=== PATIENT | male | born 1925 | race Caucasian/White ===

== ENCOUNTER 2016-11-07 23:07 | Inpatient (IN) | payer MEDICARE, OTHER ==
[2016-11-08 00:01] VITALS: BP 128/63
[2016-11-08 07:50] LABS: % BASOPHILS 0.2 % (0.0-2.0); % EOSINOPHILS 1.9 % (0.0-5.0); % MONOCYTES 8.5 % (2.0-10.0); % NEUTROPHILS 67.4 % (40.0-80.0); HEMATOCRIT 40.7 % (39.0-49.0); HEMOGLOBIN 13.8 gm/dL (12.6-17.4); MEAN CELL VOLUME 93.3 fl (80-99); MEAN CORPUSCULAR HEMOGLOBIN 31.7 pg (27.0-31.0); MEAN PLATELET VOLUME 8.7 fl; NEUTROPHILE ABSOLUTE 4.8 Th/cmm (1.8-8.0); PLATELET COUNT 140 Th/cmm (150-400); RED BLOOD COUNT 4.36 Mil/cmm (3.80-5.80); RED CELL DISTRIBUTION WIDTH 18.7 % (11.5-20.0); WHITE BLOOD COUNT 7.1 Th/cmm (4.8-10.8)
[2016-11-08 08:03] LABS: ALB/GLOB RATIO 1.5 (1.0-1.8); ALKALINE PHOSPHATASE 65 U/L (34-104); ANION GAP 13.4 (7.0-16.0); BUN - UREA NITROGEN 23 mg/dL (7-25); BUN/CREATININE RATIO 25.6; CALCIUM SERUM 9.4 mg/dL (8.6-10.3); CARBON DIOXIDE 28.9 mEq/L (21.0-31.0); CHLORIDE 101 mEq/L (98-107); CREATININE - SERUM 0.9 mg/dL (0.7-1.3); GLUCOSE 105 mg/dL (70-105); POTASSIUM SERUM 3.3 mEq/L (3.5-5.1); SGOT 14 U/L (13-39); SGPT/ALT 15 U/L (7-52); SODIUM SERUM 140 mEq/L (136-145)
[2016-11-08] MEDS ORDERED: Potassium Chloride 20 mEq ER Tab PO ONE (08:19)
[2016-11-08] MEDS ORDERED: Maalox 30 mL Cup PO PRN (08:20)
[2016-11-08 08:30] LABS: TROP I 0.01 ng/mL (0.01-0.05)
[2016-11-08] MEDS ORDERED: Ipratropium Neb 0.5 mg/2.5 mL UD HHN SCH (08:30)
[2016-11-08] MEDS: Multivitamin Tab PO SCH (10:03)
[2016-11-08] MEDS: Aspirin 81mg Chewable Tab PO SCH (10:04)
[2016-11-08] MEDS: Potassium Chloride 10 mEq ER Tab PO SCH (10:04)
--- NOTE | 2016-11-08 10:08 | History & Physical ---
CHIEF COMPLAINT: Shortness of breath. HISTORY OF PRESENT ILLNESS: This is an 89-year-old male who was transferred from [facility] to [facility] for continued care was initially diagnosed with congestive heart failure while at the ER. The patient initially is a resident at [facility] and was noted to have increased shortness of breath noted by the nursing staff was transferred to [place] for evaluation. During his initial evaluation, his lab work, CBC was essentially normal. Hemoglobin 16.4, hematocrit 49.7, platelets 147, white count was 7.3. His Chem-7 was also essentially normal with sodium 140, potassium 3.8, chloride 102, bicarbonate 27, BUN 22, creatinine 0.9, glucose 104. His BNP was noted to be elevated at 2130. Chest x-ray was ordered at [place], which revealed a right lower lobe opacification. The patient was given Lasix while in the ER. He was subsequently transferred to [place] because of being out of network and treatment to be continued here. PAST MEDICAL HISTORY: TIA, CHF, COPD, late affect CVA, CAD, hypertension, diabetes type 2, status post cardiac pacemaker, dementia, BPH and chronic AFib. His labs this morning was essentially the same except his potassium was noted to be at 3.8 today. REVIEW OF SYSTEMS: Difficult to assess due to the patient's history of confusion and dementia. PHYSICAL EXAMINATION: VITAL SIGNS: Temperature 97.4, pulse 62, respirations 18, blood pressure 106/70. GENERAL: This is well developed, well nourished 89-year-old male, appears stated age. HEENT: Normocephalic, atraumatic. Pupils equal, round, reactive to light and accommodation. Extraocular muscles intact. Ears: TMs intact. NECK: Supple, good range of motion, no thyromegaly, no lymphadenopathy. CARDIOVASCULAR: Regular rate and rhythm, no murmurs, rubs or clicks. LUNGS: Decreased breath sounds noted at the right lower base. ABDOMEN: Soft, nontender, and nondistended. Bowel sounds are active in all 4 quadrants. No rebound tenderness, rigidity, no guarding. EXTREMITIES: No clubbing, cyanosis or edema. Pedal pulses are intact. ASSESSMENT: 1. Shortness of breath secondary to congestive heart failure. 2. Right lower lobe opacification. 3. Transient ischemic attack/cerebrovascular accident. 4. Chronic obstructive pulmonary disease. 5. Coronary artery disease. 6. Hypertension 7. Diabetes mellitus type 2. 8. Status post pacemaker placement. 9. Dementia. 10. Benign prostatic hypertrophy 11. Atrial fibrillation. PLAN: We will order CBC, Chem-7, BNP, chest x-ray, TSH, troponin level. We will order cardiac consult with Dr. Greene. We will renew or continue his current medications and will give the patient a dose of K-Dur 20 mEq p.o. JOB# [id number]
--- NOTE | 2016-11-08 11:13 | Diagnostic Imaging Report ---
Portable chest x-ray HISTORY: Shortness of breath The heart is enlarged. After scarring calcination seen in the aorta. There is a degree of pulmonary vascular redistribution consistent cardiac consultation. Accentuation of the interstitial lung markings. Cardiac electrode lead wire projects over the region of the right ventricle. IMPRESSION: 1. Marked cardiomegaly with findings consistent with a degree of congestive heart failure. Clinical correlation needed.
--- NOTE | 2016-11-08 14:22 | Admit Criteria Form ---
Admit Criteria Forms - Admit Criteria Diagnosis: HEART FAILURE: COMMON COMPLICATIONS Clinical Indications for Inpatient Care (Place 'X' for any and all applicable criteria): Ongoing inpatient care may be indicated for heart failure with ANY ONE of the following (1)(2)(3)(4)(5): [ ]I. Ongoing need for care for primary condition requiring frequent therapy adjustments because of changes in cardiac function (eg, drug dosage changes for drugs that are renally metabolized) [ ]II. New-onset heart failure [ ]III. Heart failure with decreased urine output not responsive to attempts to optimize volume status [ ]IV. Acute cardiac ischemia causing or associated with failure [X ]V. Complications of heart failure, including ANY ONE of the following: [ ]a) Pericardial effusion [ ]b) Symptomatic pleural effusion [ ]c) O2 saturation <90% or PO2 < 60 mm Hg (8.0 kPa) on room air or require baseline supplemental O2 [ ]d) Tachypnea [X ]e) Dyspnea [ ]f) Syncope [ ]g) Change in mental status [ ]h) Acute renal insufficiency that is severe (reduction of more than 50% in estimated glomerular filtration rate from baseline) or progressive reduction of more than 25% in estimated glomerular filtration rate from baseline, with creatinine continuing to rise) [ ]i) Hemodynamic instability [ ]j) Anasarca [ ]k) Clinically significant metabolic abnormalities due to heart failure (eg, new-onset metabolic acidosis) Extended stay beyond goal length of stay for primary condition may be needed until ALL of the following are present(1)(3): [ ]a) Stable and effective diuretic regimen established (or patient on stable dialysis regimen if in chronic renal failure) [ ]b) Breathing comfortably at rest [ ]c) Saturation of arterial oxygen greater than 90% or at acceptable baseline [ ]d) Pulmonary edema absent or improved [ ]e) Hemodynamic stability [ ]f) Volume status acceptable on oral medication [ ]g) Peripheral or sacral edema absent or improved [ ]h) Renal function stable and manageable at a lower level of care [ ]i) Complications (eg, pleural effusion) resolved or manageable at a lower level of care [ ]j) Patient or caregiver has received written discharge instructions or educational material addressing activity level, diet, discharge medications, follow-up appointment, weight monitoring, and what to do if symptoms worsen The original [employer] content created by Georgiana Lima has been revised. The portions of the content which have been revised are identified through the use of italic text or in bold, and Georgiana Lima has neither reviewed nor approved the modified material.All other unmodified content is copyright Georgiana Lima. Please see references footnoted in the original Georgiana Lima edition 2016 Admit Criteria Met?: Yes
[2016-11-08] MEDS ORDERED: Ipratropium Neb 0.5 mg/2.5 mL UD HHN PRN (15:40)
[2016-11-08] MEDS: Ipratropium Neb 0.5 mg/2.5 mL UD HHN SCH ×3 (18:36→23:07)
[2016-11-08] MEDS: Albuterol Nebulizer 2.5mg/3mL HHN SCH ×3 (18:36→23:07)
[2016-11-09] MEDS: Ipratropium Neb 0.5 mg/2.5 mL UD HHN SCH ×6 (02:54→22:48)
[2016-11-09] MEDS: Albuterol Nebulizer 2.5mg/3mL HHN SCH ×6 (02:54→22:48)
[2016-11-09 07:53] LABS: ALB/GLOB RATIO 1.4 (1.0-1.8); ALKALINE PHOSPHATASE 58 U/L (34-104); ANION GAP 6.9 (7.0-16.0); BILIRUBIN,TOTAL 1.7 mg/dL (0.3-1.0); BUN - UREA NITROGEN 21 mg/dL (7-25); CALCIUM SERUM 8.7 mg/dL (8.6-10.3); CARBON DIOXIDE 30.4 mEq/L (21.0-31.0); CHLORIDE 106 mEq/L (98-107); CREATININE - SERUM 0.7 mg/dL (0.7-1.3); GLUCOSE 74 mg/dL (70-105); POTASSIUM SERUM 3.3 mEq/L (3.5-5.1); SGOT 14 U/L (13-39); SGPT/ALT 13 U/L (7-52); SODIUM SERUM 140 mEq/L (136-145)
[2016-11-09] MEDS: Multivitamin Tab PO SCH (08:16)
[2016-11-09] MEDS: Potassium Chloride 10 mEq ER Tab PO SCH (08:16)
[2016-11-09] MEDS: Aspirin 81mg Chewable Tab PO SCH (08:17)
--- NOTE | 2016-11-09 14:57 | Cardiology ---
M-MODE ECHOCARDIOGRAM: Mitral Valve: Anterior leaflet of the mitral valve shows decreased excursion, EF velocity. Posterior leaflet of the mitral valve shows decreased excursion. Left ventricular posterior wall shows increased thickness, decreased excursion. Interventricular septum shows increased thickness, decreased excursion, ejection fraction 10-15%. Left atrium enlarged 5.5 cm. Aortic root shows normal dimension, normal excursion of aortic leaflets. CONCLUSION: Hypertrophy of the left ventricle, cardiomyopathy, left atrial enlargement, ejection fraction 10-15%. 2D ECHO: Long axis view shows enlarged left ventricular cavity with hypertrophy of the left ventricle, global hypokinesis. Mitral valve shows decreased excursion, left atrium enlarged. Aortic root shows normal dimension, normal excursion of aortic leaflets. Short axis view of mitral valve normal. Short axis view of aortic valve normal. Apical four-chamber view shows enlarged left ventricular cavity with hypertrophy of the left ventricle, ejection fraction 10-15%. Left atrium enlarged. Right ventricular cavity, right atrium normal, no pericardial effusion. CONCLUSION: Cardiomyopathy, hypertrophy of the left ventricle, left atrial enlargement, ejection fraction 10%-15%. Doppler study shows mild left ventricular hypertrophy, mild tricuspid regurgitation, moderate aortic regurgitation, severe mitral regurgitation. [facility]# [id number]
--- NOTE | 2016-11-09 19:32 | Consultation ---
The patient is patient of Dr. Urbano Mccann. HISTORY AND PHYSICAL: This is an 89-year-old male patient who was transferred from [facility], after evaluation was found to have congestive heart failure and possible pneumonia. The patient has an elevated BNP level of 2130. Chest x-ray consistent with right lower lobe pneumonia and congestive heart failure. PAST MEDICAL HISTORY: TIA, congestive heart failure, COPD, CVA with late effect, stable angina, cardiomyopathy with AICD placement, hypertension, diabetes mellitus type 2, dementia, BPH and chronic atrial fibrillation. FAMILY HISTORY: Unremarkable. SOCIAL HISTORY: No history of smoking or alcohol abuse. ALLERGIES: No known allergies. PHYSICAL EXAMINATION: VITAL SIGNS: Blood pressure 120/80, pulse 100 and irregular and respirations 28. HEAD: Normocephalic. No lumps or bumps. EYES: Pupils equal, reactive to light. Fundi show AV nicking, sclerae white, conjunctivae pink. NECK: Carotid 2+. Normal upstroke. JVD 10 cm above the sternal angle. Thyroid not palpable. Lymph nodes not palpable. CHEST: Shows increased AP diameter. No kyphosis or scoliosis. LUNGS: Bilateral rales. Decreased breath sounds in both the bases. HEART: PMI fifth intercostal space with yniuhso-jy-xxbdvkldmyrpt line. S1, S2, S3, S4, systolic murmur, grade 2/6, lower left sternal border without radiation. ABDOMEN: Soft, hepatojugular reflux positive. Bowel sounds active. RECTAL: Deferred. EXTREMITIES: Peripheral pulses 2+. No pedal edema. CLINICAL IMPRESSION: Congestive heart failure, systolic dysfunction, cardiomyopathy, right lower lobe pneumonia, TIA, late CVA, COPD, stable angina, hypertension, ventricular arrhythmias with AICD placement, diabetes mellitus type 2, dementia, BPH and chronic atrial fibrillation. PLAN: Admit the patient. We will continue anticoagulation, diuretics, preload and afterload reduction. The patient's echocardiogram showed cardiomyopathy, ejection fraction about 15%. JOB# [id number]
[2016-11-10] MEDS: Albuterol Nebulizer 2.5mg/3mL HHN SCH ×6 (02:50→23:15)
[2016-11-10] MEDS: Ipratropium Neb 0.5 mg/2.5 mL UD HHN SCH ×6 (02:50→23:16)
[2016-11-10] MEDS: Aspirin 81mg Chewable Tab PO SCH (08:24)
[2016-11-10] MEDS: Multivitamin Tab PO SCH (08:24)
[2016-11-10] MEDS: Potassium Chloride 10 mEq ER Tab PO SCH (08:24)
[2016-11-11] MEDS: Albuterol Nebulizer 2.5mg/3mL HHN SCH ×6 (02:55→23:31)
[2016-11-11] MEDS: Ipratropium Neb 0.5 mg/2.5 mL UD HHN SCH ×6 (02:55→23:31)
[2016-11-11] MEDS: Potassium Chloride 10 mEq ER Tab PO SCH (09:06)
[2016-11-11] MEDS: Aspirin 81mg Chewable Tab PO SCH (09:06)
[2016-11-11] MEDS: Multivitamin Tab PO SCH (09:06)
--- NOTE | 2016-11-12 03:15 | Consultation ---
Covering for Dr. Montano. IDENTIFYING INFORMATION: The patient is an 89-year-old male ____ the patient has been agitated, hitting staff. The patient himself was a poor historian. He was sedated, unable to participate in a meaningful conversation. The patient is with a history of dementia and agitation. PAST PSYCHIATRIC HISTORY: Dementia. No other information is available. The patient is unable to give information. PAST MEDICAL HISTORY: Deferred to Dr. Mccann. The patient has congestive heart failure, has many other illnesses, hypertension, coronary artery disease, CVA, and COPD. FAMILY AND SOCIAL HISTORY: Unobtainable, the patient has been in a nursing facility. MENTAL STATUS EXAMINATION: The patient was sedated. Unable to participate in a meaningful conversation. The staff reported he has been very confused, unpredictable and impulsive, hitting staff with a history of dementia. He has very poor insight, so I was unable to ____ do a formal mental status examination on him ____ he is impulsive, unpredictable and insight and judgment is impaired. IMPRESSION: AXIS I: Dementia with behavior disturbances. MEDICAL DIAGNOSES: Deferred to the medical doctor, recommend to increase the Seroquel and give him 12.5 mg at bedtime and continue Seroquel 37.5 mg at bedtime and thank you very much for allowing me and transfer to [facility] and thank you very much for allowing me to participate in the care of this most interesting gentleman. JOB# [id number]
[2016-11-12] MEDS: Ipratropium Neb 0.5 mg/2.5 mL UD HHN SCH ×4 (03:49→22:42)
[2016-11-12] MEDS: Albuterol Nebulizer 2.5mg/3mL HHN SCH ×3 (03:49→14:41)
[2016-11-12 07:11] LABS: ANION GAP 7.3 (7.0-16.0); BUN - UREA NITROGEN 27 mg/dL (7-25); CALCIUM SERUM 9.6 mg/dL (8.6-10.3); CARBON DIOXIDE 28.5 mEq/L (21.0-31.0); CHLORIDE 107 mEq/L (98-107); CREATININE - SERUM 0.9 mg/dL (0.7-1.3); GLUCOSE 95 mg/dL (70-105); POTASSIUM SERUM 3.8 mEq/L (3.5-5.1); SODIUM SERUM 139 mEq/L (136-145)
[2016-11-12] MEDS: Multivitamin Tab PO SCH (09:28)
[2016-11-12] MEDS: Aspirin 81mg Chewable Tab PO SCH (09:28)
[2016-11-12] MEDS: Potassium Chloride 10 mEq ER Tab PO SCH (09:28)
[2016-11-12] MEDS: Albuterol Nebulizer 2.5mg/3mL HHN PRN ×2 (09:50→22:42)
[2016-11-12] MEDS: cefTRIAXone 1 GM in Sodium Chloride 0.9% 100 ML IV SCH (10:20)
--- NOTE | 2016-11-12 10:57 | Diagnostic Imaging Report ---
Portable chest x-ray HISTORY: Shortness of breath Compared to prior exam of 11/08/2016, the heart remains enlarged. There is pulmonary vascular redistribution consistent cardiac decompensation. Slight accentuation of the lower interstitial lung markings. IMPRESSION: 1. Persistent cardiomegaly with findings consistent with a degree of congestive heart failure.
[2016-11-12] MEDS: Albuterol/Ipratropium Neb 3 ML AERS HHN SCH (20:05)
[2016-11-12] MEDS: Budesonide 0.5 Mg/2 mL Ud HHN SCH (20:05)
[2016-11-13] MEDS: Ipratropium Neb 0.5 mg/2.5 mL UD HHN SCH ×4 (02:39→16:23)
--- NOTE | 2016-11-13 04:26 | Progress Notes ---
Case was discussed with staff of the patient. The patient continues to be easily agitated, irritable, combative, pulling IVs. Continues to be unpredictable, impulsive. Continues to need redirection. Continues to have poor insight. Unable to carry on a conversation or make safe plan for self-care. I did increase his Seroquel dose yesterday and Dr. Montano will follow up with the patient tomorrow, continue his medication. Thank you very much for allowing me to participate in the care of this most interesting gentleman. JOB# [id number]
[2016-11-13] MEDS: Budesonide 0.5 Mg/2 mL Ud HHN SCH ×2 (07:24→19:52)
[2016-11-13] MEDS: Albuterol Nebulizer 2.5mg/3mL HHN PRN (07:27)
[2016-11-13] MEDS: Albuterol/Ipratropium Neb 3 ML AERS HHN SCH ×4 (07:27→19:52)
[2016-11-13 08:19] LABS: HEMOGLOBIN 14.7 gm/dL (12.6-17.4); MEAN CELL VOLUME 93.5 fl (80-99); MEAN CORPUSCULAR HEMOGLOBIN 31.9 pg (27.0-31.0); MEAN CORPUSCULAR HGB CONC 34.1 pg (28.0-36.0); MEAN PLATELET VOLUME 8.8 fl; PLATELET COUNT 146 Th/cmm (150-400); RED CELL DISTRIBUTION WIDTH 19.5 % (11.5-20.0); WHITE BLOOD COUNT 7.9 Th/cmm (4.8-10.8)
[2016-11-13 08:59] LABS: BAND NEUTROPHILE 3 % (0-10); NEUTROPHILS 85 % (40-80); TOTAL CELLS COUNTED 100
[2016-11-13 09:00] LABS: PLATELET ESTIMATE ADEQUATE (NORMAL)
[2016-11-13 09:28] LABS: ALB/GLOB RATIO 1.3 (1.0-1.8); BILIRUBIN,DIRECT 0.6 mg/dL (0.0-0.2)
[2016-11-13] MEDS: cefTRIAXone 1 GM in Sodium Chloride 0.9% 100 ML IV SCH (09:39)
[2016-11-13] MEDS: Potassium Chloride 10 mEq ER Tab PO SCH (09:41)
[2016-11-13] MEDS: Aspirin 81mg Chewable Tab PO SCH (09:41)
[2016-11-13] MEDS: Multivitamin Tab PO SCH (09:42)
[2016-11-13 10:40] LABS: ABG SOURCE Arterial; ALLEN TEST Positive; BE(B) 5.9 mmol/L (-3.0-3.0); FIO2 28; HCO3 29.7 mmol/L (20.0-26.0); pH 7.49 (7.35-7.45)
--- NOTE | 2016-11-13 18:15 | Consultation ---
REASON FOR CONSULTATION: Shortness of breath, coughing, and wheezing. CONSULT NOTE: This is an 89-year-old gentleman who is a very poor historian and the patient was basically admitted up here a few days ago from the [facility] initially from the [facility], and apparently, the patient at that time was thought to be possibly congestive heart failure, and apparently, the patient was essentially unremarkable, but because of suspicion of some congestive heart failure, the patient was transferred up here for further care and necessary treatment. There was also history of possibly congestive heart failure. Unfortunately, the patient is a very poor historian, complains of shortness of breath, denies of any coughing, wheezing, or any pleuritic chest pain. PAST MEDICAL HISTORY: History of TIA, congestive heart failure, COPD, coronary artery disease, hypertension, history of previous dementia, BPH, and chronic atrial fibrillation. The patient denies of any smoking and no specific allergies to any medication. PHYSICAL EXAMINATION: GENERAL: This is an elderly looking gentleman, awake, alert, oriented, too confused, does not remember a lot of things. VITAL SIGNS: The patient's recorded vitals: Temperature is 97.5, blood pressure 125/73, saturation is 99% on supplemental oxygen. HEENT: Examination of the head is essentially unremarkable. Pupils appear to be equal and reacting to light. Conjunctivae are slightly pallor. Oral cavity shows small oropharyngeal opening with temperature dentures. NECK: No nodes in the neck could be palpated. CHEST: Shows occasional rhonchi with diminished air entry on the right side. HEART: ____ irregular. ABDOMEN: Soft and nontender. EXTREMITIES: Shows no peripheral edema. LABORATORY DATA: The patient's pertinent laboratory studies including today's x-ray show cardiomegaly, poor rotated film, there is haziness on the right side. I am not sure whether it is increased or underlying effusion, and the patient's most recent laboratory studies show white count is 7.1 and hemoglobin 13.1. Electrolytes are okay with BUN of 27 and BNP is 1500. ASSESSMENT: 1. The patient has problem with breathing, most likely secondary to congestive heart failure, still persists. 2. Underlying possibly chronic obstructive pulmonary disease. 3. Underlying pneumonia versus effusion on the right side and history of underlying dementia. PLANS AND SUGGESTIONS: We will go ahead and continue current treatment. Add inhaled steroid to current treatment. We will get a CT of the chest for better evaluation and continue rest of the treatment and see how he does and go from there. JOB# [id number]
--- NOTE | 2016-11-14 02:28 | Consultation ---
HISTORY OF PRESENT ILLNESS: This is an 89-year-old male with history of agitation and poor historian. On [id number], the patient restrains, is combative, kicking staff. Ativan helps. The patient is AO x 0 and unable to participate in a meaningful conversation. PAST PSYCHIATRIC HISTORY: Dementia and agitation. PAST MEDICAL HISTORY: Reviewed. FAMILY HISTORY: Reviewed. MENTAL STATUS EXAMINATION: The patient is awake, alert, AO x 0, not really talking to me, mumbling, impulsive, unpredictable. Mood, not answering. Affect flat. Thought process, confused. Thought content, difficult to assess fully. Poor impulse control. Poor concentration. Poor insight. Poor judgment. PROVISIONAL DIAGNOSIS: Dementia with behavioral disturbances and psychosis, unspecified. RECOMMENDATIONS AND PLAN: P.r.n. medications do seem to be helping. Continue medications at current dose including Seroquel at nighttime. The patient may benefit from a p.o. dosing of Seroquel during the daytime as well q.8h. so I will add this to his regimen. JOB# [id number]
--- NOTE | 2016-11-14 03:35 | Progress Notes ---
PULMONARY PROGRESS NOTE PROBLEM LIST: 1. Congestive heart failure. 2. COPD. 3. Possibly pneumonia, right side with effusion. 4. Alzheimer's. SYMPTOMS: Nil. Awake, but not too much communication other symptomatology could be obtained from the patient. PHYSICAL EXAMINATION: VITAL SIGNS: The patient's recorded vitals: Temperature is 97.8, blood pressure 120/68, respirations 18, and saturation 98 on 2 liters of oxygen. NECK: Veins not visualized. CHEST: Shows occasional rales with generalized diminished air entry. HEART: Regular. ABDOMEN: Soft and nontender. EXTREMITIES: Shows no peripheral edema. LABORATORY DATA: White count is 7.3, hemoglobin 14.7 and neutrophils 85. ABG, pO2 is 86 and this is on [address] at this time is pending. We will review it by myself. In the meantime, continue rest of other treatment. JOB# [id number]
[2016-11-14] MEDS: Ipratropium Neb 0.5 mg/2.5 mL UD HHN SCH ×7 (04:34→23:10)
--- NOTE | 2016-11-14 06:32 | Consultation ---
HISTORY OF PRESENT ILLNESS: An 89 male with a history of bipolar. The patient had been in the Geropsych Unit, hyperverbal, paranoia. The patient transferred over to the Med/Surg unit due to medical decompensation. On [id number], the patient is calm, cooperative, still making some odd statements in regards to why he was in the hospital. He is fairly unclear as to why he is actually in the hospital. PAST PSYCHIATRIC HISTORY: History of bipolar. SOCIAL HISTORY: Please see initial psych eval. ALLERGIES: Reviewed. MEDICATIONS: Reviewed. MENTAL STATUS EXAMINATION: Appearance stated age. Fair eye contacts. Speech was within normal limits. Mood "okay." Affect flat. Thought processes were somewhat disoriented. Thought content, no overt SI or HI. The patient with paranoid delusions. Insight diminished. Judgment diminished. Poor impulse control, fair concentration. PROVISIONAL DIAGNOSIS: Bipolar, most recent episode manic with evidence of psychosis. MEDICAL: Please see full H and P. RECOMMENDATIONS AND PLAN: Continue to monitor. The patient was started on Geodon. Once the patient is medically stable, transferred back to [facility]. JOB# [id number]
[2016-11-14] MEDS: Albuterol/Ipratropium Neb 3 ML AERS HHN SCH ×4 (07:34→19:48)
[2016-11-14] MEDS: Budesonide 0.5 Mg/2 mL Ud HHN SCH ×2 (07:34→19:48)
[2016-11-14 07:49] LABS: ANION GAP 7.5 (7.0-16.0); BUN - UREA NITROGEN 34 mg/dL (7-25); BUN/CREATININE RATIO 37.8; CALCIUM SERUM 9.1 mg/dL (8.6-10.3); CARBON DIOXIDE 35.9 mEq/L (21.0-31.0); CHLORIDE 104 mEq/L (98-107); CREATININE - SERUM 0.9 mg/dL (0.7-1.3); GLUCOSE 95 mg/dL (70-105); SODIUM SERUM 145 mEq/L (136-145)
[2016-11-14 08:05] LABS: POTASSIUM SERUM 2.4 mEq/L (3.5-5.1)
[2016-11-14] MEDS ORDERED: Potassium Phosphate 40 MMOLE in Sodium Chloride 0.9% 250 ML IV ONE (08:06)
[2016-11-14] MEDS ORDERED: Potassium Chloride 40 MEQ, Lidocaine 1% 20mL Vial 25 MG in Sodium Chloride 0.9% 250 ML IV ONE (08:14)
[2016-11-14] MEDS: cefTRIAXone 1 GM in Sodium Chloride 0.9% 100 ML IV SCH (09:19)
[2016-11-14] MEDS: Multivitamin Tab PO SCH (09:54)
[2016-11-14] MEDS: Aspirin 81mg Chewable Tab PO SCH (09:54)
[2016-11-14] MEDS: Potassium Chloride 10 mEq ER Tab PO SCH (09:54)
[2016-11-14] MEDS: KCL 20mEq/100mL Premix 20 MEQ/100 ML PIGGYBACK IV SCH ×2 (10:11→13:24)
--- NOTE | 2016-11-14 11:00 | Diagnostic Imaging Report ---
CT scan of the chest without intravenous contrast HISTORY: Shortness of breath Total DLP equals 205 CTDI equals 5.6 Axial sections were obtained from a level above the clavicles down to level below the diaphragm. The heart is enlarged. Coronary artery calcification noted. Artifact associated with cardiac pacemaker lead wires noted. There is a small to moderate right pleural effusion. Minimal left pleural effusion noted. Parenchymal density noted in the right lower lobe consistent with consolidation and/or atelectasis. No abnormal mediastinal masses. Limited sections through the upper abdomen demonstrate a long chest (greater than 8.0 cm cystic collection in the ata hepatis region. It is uncertain if this is related to the liver or possibly a severely dilated gallbladder. Several hepatic cysts are noted in the right and left lobes. A dedicated CT scan of the abdomen would provide additional assessment and evaluation. IMPRESSION: 1. Bilateral pleural effusions (right greater than the left). 2. Parenchymal density right lower lobe that may be associated with consolidation and/or atelectasis 3. Marked cardiomegaly with evidence of coronary artery and atherosclerotic vascular calcification 4. Large cystic collection in the ata hepatis region. Exact site of origin is uncertain. This may be associated with a severely dilated gallbladder. A large hepatic cyst cannot be excluded. Several additional hepatic cysts are seen. A dedicated CT scan of the abdomen is recommended for additional assessment and evaluation.
[2016-11-14] MEDS ORDERED: Potassium Chloride 20 mEq ER Tab PO ONE (13:00)
[2016-11-14] MEDS: Levofloxacin 500mg/100mL 500 MG/100 ML BAG IV SCH (15:15)
[2016-11-15 06:56] LABS: ALB/GLOB RATIO 1.3 (1.0-1.8); ALKALINE PHOSPHATASE 51 U/L (34-104); ANION GAP 5.4 (7.0-16.0); BILIRUBIN,TOTAL 1.7 mg/dL (0.3-1.0); BUN - UREA NITROGEN 35 mg/dL (7-25); CALCIUM SERUM 9.2 mg/dL (8.6-10.3); CARBON DIOXIDE 36.4 mEq/L (21.0-31.0); CHLORIDE 107 mEq/L (98-107); GLUCOSE 82 mg/dL (70-105); SGOT 26 U/L (13-39); SGPT/ALT 19 U/L (7-52); SODIUM SERUM 146 mEq/L (136-145)
--- NOTE | 2016-11-15 07:11 | Progress Notes ---
PROBLEM LIST: 1. Congestive heart failure. 2. Bilateral effusion, more in right than the left. 3. Some mild degree questionable patchy infiltrate and underlying history of COPD as well as history of Alzheimer's. SYMPTOMS: Nil. Little bit mumbling more, but no respiratory distress. PHYSICAL EXAMINATION: VITAL SIGNS: Temperature is 97, heart rate is 80, blood pressure 118/67, saturation 97 on 2 liters of oxygen. NECK: Veins not visualized. CHEST: Shows slightly increasing PA diameter on auscultation, there is diminished air entry at both the bases, more in right than the left. HEART: Irregular. ABDOMEN: Soft, nontender. EXTREMITIES: Shows no peripheral edema. IMAGING: CT of the chest reviewed. There is a questionable patchy infiltrate in upper lobe region associated mild to moderate effusion, more right than the left side. LABORATORY DATA: The patient's other laboratory studies, electrolytes potassium is ____, BUN is 34 and total albumin is 2. The patient's BNP is 934 and patient's albumin is 3.0. ASSESSMENT: The patient is clinically stable, not much changed, abnormal chest x-ray looking mostly secondary to the effusion layering on the right side with significant cardiomegaly with elevated BNP. PLANS AND SUGGESTIONS: We will continue current cardiac treatment, observe chest x-ray and continue rest of other treatment and go from there. JOB# [id number]
[2016-11-15] MEDS: Albuterol/Ipratropium Neb 3 ML AERS HHN SCH ×5 (07:20→19:56)
[2016-11-15 07:21] LABS: POTASSIUM SERUM 2.8 mEq/L (3.5-5.1)
[2016-11-15] MEDS: Budesonide 0.5 Mg/2 mL Ud HHN SCH ×2 (07:38→19:56)
[2016-11-15] MEDS ORDERED: KCL 20mEq/100mL Premix 20 MEQ/100 ML PIGGYBACK IV SCH (08:15)
[2016-11-15] MEDS: Multivitamin Tab PO SCH (09:38)
[2016-11-15] MEDS: Aspirin 81mg Chewable Tab PO SCH (09:38)
[2016-11-15] MEDS: Potassium Chloride 20 mEq ER Tab PO SCH (09:38)
[2016-11-15] MEDS: cefTRIAXone 1 GM in Sodium Chloride 0.9% 100 ML IV SCH (09:41)
[2016-11-15] MEDS ORDERED: Potassium Chloride 20 mEq ER Tab PO ONE (10:33)
--- NOTE | 2016-11-15 10:33 | Diagnostic Imaging Report ---
CHEST X-RAY: AP view INDICATION: CHF COMPARISON: 11/12/2016 FINDINGS: Improving congestive changes are noted. No focal consolidation or definite effusions. Cardiomegaly is noted. Pacemaker is stable. IMPRESSION: Improving congestive changes. No focal consolidation identified. Cardiomegaly and atherosclerotic vascular disease.
[2016-11-15] MEDS: Levofloxacin 500mg/100mL 500 MG/100 ML BAG IV SCH (15:04)
[2016-11-15] MEDS: Ipratropium Neb 0.5 mg/2.5 mL UD HHN SCH ×2 (19:56→23:08)
[2016-11-16] MEDS: Ipratropium Neb 0.5 mg/2.5 mL UD HHN SCH (03:23)
[2016-11-16] MEDS: Albuterol/Ipratropium Neb 3 ML AERS HHN SCH ×4 (07:01→19:34)
[2016-11-16] MEDS: Budesonide 0.5 Mg/2 mL Ud HHN SCH ×2 (07:01→19:34)
[2016-11-16 08:01] LABS: ALB/GLOB RATIO 1.4 (1.0-1.8); ALKALINE PHOSPHATASE 52 U/L (34-104); ANION GAP 7.4 (7.0-16.0); BILIRUBIN,TOTAL 1.6 mg/dL (0.3-1.0); BUN - UREA NITROGEN 38 mg/dL (7-25); CALCIUM SERUM 9.1 mg/dL (8.6-10.3); CARBON DIOXIDE 38.2 mEq/L (21.0-31.0); CHLORIDE 105 mEq/L (98-107); GLUCOSE 117 mg/dL (70-105); HEMATOCRIT 41.5 % (39.0-49.0); HEMOGLOBIN 13.8 gm/dL (12.6-17.4); MEAN CELL VOLUME 94.5 fl (80-99); MEAN CORPUSCULAR HEMOGLOBIN 31.4 pg (27.0-31.0); MEAN CORPUSCULAR HGB CONC 33.2 pg (28.0-36.0); MEAN PLATELET VOLUME 9.4 fl; RED BLOOD COUNT 4.39 Mil/cmm (3.80-5.80); RED CELL DISTRIBUTION WIDTH 18.7 % (11.5-20.0); SGOT 26 U/L (13-39); SGPT/ALT 22 U/L (7-52); SODIUM SERUM 148 mEq/L (136-145); WHITE BLOOD COUNT 8.4 Th/cmm (4.8-10.8)
[2016-11-16 08:04] LABS: PLATELET COUNT 102 Th/cmm (150-400)
[2016-11-16 08:05] LABS: POTASSIUM SERUM 2.6 mEq/L (3.5-5.1)
[2016-11-16] MEDS: Aspirin 81mg Chewable Tab PO SCH (09:05)
[2016-11-16] MEDS: Potassium Chloride 20 mEq ER Tab PO SCH (09:05)
[2016-11-16] MEDS: Multivitamin Tab PO SCH (09:06)
[2016-11-16] MEDS: cefTRIAXone 1 GM in Sodium Chloride 0.9% 100 ML IV SCH (09:31)
[2016-11-16 10:05] LABS: ANISOCYTOSIS 1+; BAND NEUTROPHILE 7 % (0-10); NEUTROPHILS 90 % (40-80); PLATELET ESTIMATE DECREASED PLATELETS (NORMAL); PLATELET MORPHOLOGY NORMAL (NORMAL); TOTAL CELLS COUNTED 100
[2016-11-16] MEDS ORDERED: Potassium Chloride 40 MEQ, Lidocaine 1% 20mL Vial 25 MG in Sodium Chloride 0.9% 250 ML IV ONE (10:25)
[2016-11-16] MEDS ORDERED: Potassium Chloride 20 mEq ER Tab PO ONE (14:42)
[2016-11-16] MEDS: Levofloxacin 500mg/100mL 500 MG/100 ML BAG IV SCH (17:09)
--- NOTE | 2016-11-17 01:12 | Progress Notes ---
SUBJECTIVE: The patient is seen, chart reviewed, discussed with staff. Upon [id number]-[id number], the patient remains in restraints, poorly oriented, nonsensical, unable to participate in any meaningful conversation. The patient remains agitated and irritable. Medications were reviewed. Currently on p.r.n. medications, no side effects noted at this time. No EPS. Does not appear oversedated. ASSESSMENT: The patient remains confused, in restraints and poorly oriented. Continue p.r.n. treatment. We will continue to follow up. [facility]# [id number]
[2016-11-17] MEDS: Albuterol/Ipratropium Neb 3 ML AERS HHN SCH ×4 (07:02→19:20)
[2016-11-17] MEDS: Budesonide 0.5 Mg/2 mL Ud HHN SCH ×2 (07:02→19:20)
[2016-11-17 07:13] LABS: HEMATOCRIT 44.4 % (39.0-49.0); HEMOGLOBIN 14.9 gm/dL (12.6-17.4); MEAN CELL VOLUME 94.3 fl (80-99); MEAN CORPUSCULAR HEMOGLOBIN 31.6 pg (27.0-31.0); MEAN CORPUSCULAR HGB CONC 33.5 pg (28.0-36.0); MEAN PLATELET VOLUME 9.6 fl; PLATELET COUNT 89 Th/cmm (150-400); RED BLOOD COUNT 4.71 Mil/cmm (3.80-5.80); RED CELL DISTRIBUTION WIDTH 18.7 % (11.5-20.0)
[2016-11-17 07:20] LABS: WHITE BLOOD COUNT 12.6 Th/cmm (4.8-10.8)
[2016-11-17 07:42] LABS: ANION GAP 9.4 (7.0-16.0); BUN - UREA NITROGEN 44 mg/dL (7-25); BUN/CREATININE RATIO 36.7; CALCIUM SERUM 9.5 mg/dL (8.6-10.3); CARBON DIOXIDE 38.6 mEq/L (21.0-31.0); CHLORIDE 107 mEq/L (98-107); CREATININE - SERUM 1.2 mg/dL (0.7-1.3); GLUCOSE 116 mg/dL (70-105); SODIUM SERUM 152 mEq/L (136-145)
[2016-11-17 07:43] LABS: ALB/GLOB RATIO 1.5 (1.0-1.8); ALKALINE PHOSPHATASE 65 U/L (34-104); BILIRUBIN,TOTAL 1.9 mg/dL (0.3-1.0); SGOT 28 U/L (13-39); SGPT/ALT 24 U/L (7-52)
[2016-11-17 08:08] LABS: ANISOCYTOSIS 1+; BAND NEUTROPHILE 9 % (0-10); NEUTROPHILS 84 % (40-80); PLATELET ESTIMATE DECREASED PLATELETS (NORMAL); PLATELET MORPHOLOGY NORMAL (NORMAL); TOTAL CELLS COUNTED 100
[2016-11-17] MEDS ORDERED: Potassium Chloride 40 MEQ, Lidocaine 1% 20mL Vial 25 MG in Sodium Chloride 0.9% 250 ML IV ONE (08:22)
[2016-11-17] MEDS: Multivitamin Tab PO SCH (08:51)
[2016-11-17] MEDS: Aspirin 81mg Chewable Tab PO SCH (08:52)
[2016-11-17] MEDS: Potassium Chloride 20 mEq ER Tab PO SCH (08:52)
[2016-11-17] MEDS: cefTRIAXone 1 GM in Sodium Chloride 0.9% 100 ML IV SCH (09:04)
[2016-11-17] MEDS ORDERED: Potassium Chloride 20 mEq ER Tab PO ONE (13:22)
--- NOTE | 2016-11-17 13:26 | Progress Notes ---
PROBLEM LIST: 1. Acute respiratory failure, improved. 2. Pneumonia, improving. 3. Bilateral effusion, most likely congestive heart failure. 4. Alzheimer, underlying history of COPD. SYMPTOMS: The patient is moaning and groaning. No specific new symptomatology. No respiratory distress. PHYSICAL EXAMINATION: VITAL SIGNS: Temperature is 97.5, blood pressure 140/65, saturation is 100% on 2 liters. NECK: Veins not visualized. CHEST: Shows slightly dorsal kyphosis with occasional rhonchi. HEART: Regular. Chest X-ray done yesterday shows cardiomegaly, fairly clearing x-ray otherwise. ASSESSMENT: The patient clinically appears to be improving. PLANS AND SUGGESTIONS: We will continue current treatment and correct electrolytes. Otherwise, no specific new symptoms and ____ plan and go from there. JOB# [id number]
[2016-11-17] MEDS: Levofloxacin 500mg/100mL 500 MG/100 ML BAG IV SCH (15:13)
[2016-11-17] MEDS: predniSONE 5 mg/5 mL UDC PO SCH (18:46)
[2016-11-17] MEDS: Ipratropium Neb 0.5 mg/2.5 mL UD HHN SCH (23:00)
[2016-11-18] MEDS: Ipratropium Neb 0.5 mg/2.5 mL UD HHN SCH (03:01)
--- NOTE | 2016-11-18 06:18 | Progress Notes ---
PROBLEM LIST: 1. COPD. 2. Bilateral effusion. 3. Psychosis with recurrent agitation. SYMPTOMS: Nil. The patient is quite psychotic at this time and though no respiratory distress. OBJECTIVE: VITAL SIGNS: Recorded, temperature is 97.2, respiration is about 18, pulse is 80s, saturation 95 on 2 liters. ENT: Shows no new changes. CHEST: Shows diminished air entry. HEART: Regular. EXTREMITIES: Shows no peripheral edema. ASSESSMENT: Given his age and other medical issues, seems to be reasonably stable. PLANS AND SUGGESTIONS: We will go ahead and continue current treatment, is up on diuretics____ as the patient will get into prerenal azotemia and continue rest of the treatment and go from there. JOB# [id number]
[2016-11-18] MEDS: Budesonide 0.5 Mg/2 mL Ud HHN SCH (07:07)
[2016-11-18] MEDS: Albuterol/Ipratropium Neb 3 ML AERS HHN SCH ×4 (07:07→18:59)
[2016-11-18 07:33] LABS: ALB/GLOB RATIO 1.3 (1.0-1.8); ALKALINE PHOSPHATASE 50 U/L (34-104); ANION GAP 5.3 (7.0-16.0); BUN - UREA NITROGEN 51 mg/dL (7-25); CALCIUM SERUM 9.2 mg/dL (8.6-10.3); CARBON DIOXIDE 37.7 mEq/L (21.0-31.0); CHLORIDE 114 mEq/L (98-107); CREATININE - SERUM 1.5 mg/dL (0.7-1.3); GLUCOSE 80 mg/dL (70-105); SGOT 32 U/L (13-39); SGPT/ALT 26 U/L (7-52); SODIUM SERUM 154 mEq/L (136-145)
[2016-11-18 07:54] LABS: HEMATOCRIT 44.2 % (39.0-49.0); HEMOGLOBIN 14.7 gm/dL (12.6-17.4); MEAN CELL VOLUME 94.6 fl (80-99); MEAN CORPUSCULAR HEMOGLOBIN 31.5 pg (27.0-31.0); MEAN CORPUSCULAR HGB CONC 33.3 pg (28.0-36.0); MEAN PLATELET VOLUME 10.6 fl; RED BLOOD COUNT 4.67 Mil/cmm (3.80-5.80); RED CELL DISTRIBUTION WIDTH 19.1 % (11.5-20.0); WHITE BLOOD COUNT 12.6 Th/cmm (4.8-10.8)
[2016-11-18 07:55] LABS: PLATELET COUNT 61 Th/cmm (150-400)
[2016-11-18] MEDS ORDERED: Potassium Chloride 20 mEq ER Tab PO SCH (09:00)
[2016-11-18] MEDS: cefTRIAXone 1 GM in Sodium Chloride 0.9% 100 ML IV SCH (09:05)
[2016-11-18] MEDS: Aspirin 81mg Chewable Tab PO SCH (09:12)
[2016-11-18] MEDS: Multivitamin Tab PO SCH (09:14)
[2016-11-18 09:15] LABS: INR 1.51 (0.5-1.4); PROTHROMBIN TIME (TEST) 15.3 SECONDS (9.5-11.5)
[2016-11-18] MEDS: predniSONE 5 mg/5 mL UDC PO SCH (09:18)
[2016-11-18 09:38] LABS: BAND NEUTROPHILE 9 % (0-10); NEUTROPHILS 83 % (40-80); TOTAL CELLS COUNTED 100
[2016-11-18 09:39] LABS: PLATELET ESTIMATE DECREASED PLATELETS (NORMAL); PLATELET MORPHOLOGY NORMAL (NORMAL)
--- NOTE | 2016-11-18 12:16 | Diagnostic Imaging Report ---
Lumbar spine (3 views) HISTORY: Pain, trauma Views are somewhat limited due to difficulty in positioning. There is generalized osteoporosis. Diffuse degenerative changes are noted with hypertrophic spur formation seen about the endplates of all vertebrae. Mild narrowing of all interspaces. No acute abnormalities. No fractures. Atherosclerotic vascular calcification seen throughout the aorta. IMPRESSION: 1. No definite acute abnormalities 2. Diffuse degenerative changes 3. Generalized osteoporosis
--- NOTE | 2016-11-18 12:17 | Diagnostic Imaging Report ---
Left forearm (2 views) HISTORY: Pain No definite acute bony abnormalities are seen. No definite fractures. Generalized osteopenia. A small calcific densities noted in the soft tissues adjacent to the olecranon process. This may be on a dystrophic basis. IMPRESSION: 1. No definite acute abnormalities In the presence of recent trauma and persistent symptoms, a repeat radiograph in 5-7 days may be helpful for detection of a subtle or occult fracture.
--- NOTE | 2016-11-18 12:23 | Diagnostic Imaging Report ---
Right forearm (2 views) HISTORY: Pain, trauma No definite acute bony abnormalities are seen. No definite fractures. The elbow region is not well visualized. IMPRESSION: 1. No definite acute bony abnormalities. In the presence of recent trauma and persistent symptoms, a repeat radiograph in 5-7 days may be helpful for detection of a subtle or occult fracture.
[2016-11-18] MEDS ORDERED: Potassium Chloride 20 mEq ER Tab PO ONE (12:34)
[2016-11-18] MEDS: Levofloxacin 500mg/100mL 500 MG/100 ML BAG IV SCH (13:18)
--- NOTE | 2016-11-18 14:28 | Diagnostic Imaging Report ---
Left hip (3 views) HISTORY: Pain Mild to moderate joint space narrowing. Femoral head exhibits a normal contour. No definite acute abnormalities. No fractures. IMPRESSION: 1. No acute abnormalities 2. Degenerative changes
--- NOTE | 2016-11-18 14:29 | Diagnostic Imaging Report ---
Right hip (2 views) HISTORY: Pain, trauma Mild to moderate joint space narrowing. The femoral head exhibits a normal contour. No focal lesions. No fractures. IMPRESSION: 1. No acute abnormalities 2. Degenerative changes
[2016-11-18] MEDS ORDERED: metroNIDAZOLE 500mg/NS 100mL 500 MG/100 ML BAG IV SCH (21:00)
--- NOTE | 2016-11-19 02:46 | Consultation ---
REFERRING PHYSICIAN: Dr. Urbano Mccann. REASON FOR CONSULTATION: C. difficile colitis. HISTORY OF PRESENT ILLNESS: The patient is an 89-year-old male with a past medical history of severe dementia, unable to communicate, CHF, TIA, COPD, CAD, hypertension, diabetes mellitus type 2, status post cardiac pacemaker, dementia, BPH, chronic atrial fibrillation, taken to the [facility] for CHF. For insurance purposes, the patient was transferred to [facility] for further care. On initial evaluation, the patient was afebrile and WBC count 7100. Unfortunately, the patient developed diarrhea and leukocytosis. Stool for C. diff. toxin was checked and it came positive. Meanwhile, patient was receiving Rocephin and Levaquin. ID consult was called for further antibiotic management. PAST MEDICAL HISTORY: Includes TIA, CHF, COPD, CVA, CAD, hypertension, diabetes mellitus type 2, is status post cardiac pacemaker, severe dementia, BPH and chronic AFib. REVIEW OF SYSTEMS: The patient unable to give any history because of severe dementia. So far, the patient has no fever. The patient had diarrhea with soft BM. SOCIAL HISTORY: The patient lives at nursing facility. No history of smoking, alcohol or drug use. PHYSICAL EXAMINATION: VITAL SIGNS: Currently shows temperature is 97.8, pulse 65, respirations 18, blood pressure 102/60. GENERAL: The patient is comfortable, cachectic, not in acute distress. HEENT: Head is normocephalic, atraumatic. Oral cavity moist, pink tongue. Eyes: Pallor is present, no icterus. NECK: Trachea in midline. No use of accessory neck muscles. CHEST: Bilateral vesicular sounds. Occasional rhonchi. HEART: S1, S2 within normal limits. Regular rhythm. No murmur, no gallop. ABDOMEN: Soft. HEART: S1, S2 within normal limits. Irregular rhythm. ABDOMEN: Soft, nontender, nondistended. Bowel sounds present. EXTREMITIES: No cyanosis, no clubbing, no edema. NEUROLOGIC: Unable to communicate. LABORATORY DATA: Current lab shows WBC count is 12,600, hemoglobin 14.7, hematocrit 44.2, platelets are 61,000, neutrophils 83%. Sodium is 154, potassium 3.4, chloride 114, bicarbonate is 27, BUN is 51, creatinine 1.5, glucose is 80. Stool for C. difficile positive. IMPRESSION: 1. Clostridium difficile colitis. 2. Severe dementia. 3. Coronary artery disease. 4. Diabetes mellitus type 2. 5. Hypertension. RECOMMENDATIONS: We will change antibiotics to Flagyl IV. [facility]# [id number] MTDD
--- NOTE | 2016-11-19 05:06 | Progress Notes ---
PROBLEM: Acute congestive heart failure, improving, questionable slight patchy infiltrate. SYMPTOMS: The patient is still quite confused, disoriented and requiring a lot of help to ____, etc. PHYSICAL EXAMINATION: VITAL SIGNS: Temperature is 97.5, blood pressure ____102/67____, saturation 92. ENT: Shows no new changes. CHEST: Shows diminished air entry with occasional rhonchi. HEART: Regular. ABDOMEN: Soft, nontender. EXTREMITIES: Shows no peripheral edema. LABORATORY DATA: Sodium has gone up, Lasix has been cut down, BUN is 51. ASSESSMENT: The patient is clinically stable, possibly prerenal azotemia. PLANS AND SUGGESTIONS: Hold Lasix for few days and see how he does and go from there. JOB# [id number]
--- NOTE | 2016-11-21 23:11 | Discharge Summary ---
PRELIMINARY DIAGNOSES: 1. Shortness of breath secondary to congestive heart failure. 2. Right lower lobe opacification. 3. Transient ischemic attack. 4. History of cerebrovascular accident. 5. Chronic obstructive pulmonary disease. 6. Coronary artery disease. 7. Hypertension. 8. Diabetes mellitus type 2. 9. Status post pacemaker placement. 10. Dementia. 11. Benign prostatic hypertrophy. 12. Atrial fibrillation. DISCHARGE DIAGNOSES: 1.Shortness of breath secondary to congestive heart failure. 2.Right lower lobe opacification. 3.Transient ischemic attack. 4.History of cerebrovascular accident. 5.Chronic obstructive pulmonary disease. 6.Coronary artery disease. 7.Hypertension. 8.Diabetes mellitus type 2. 9.Status post pacemaker placement. 10.Dementia. 11.Benign prostatic hypertrophy. 12Atrial fibrillation. BRIEF HISTORY OF PRESENT ILLNESS: This is an 89-year-old male who was transferred from [facility] to [facility] for continued care, was initially diagnosed with congestive heart failure while in the ER. The patient initially was exhibiting increased shortness of breath noted by the nursing staff at [facility] and was transferred to [place] for evaluation. During his initial evaluation, his lab work revealed CBC, which was essentially normal. Hemoglobin 16.4, hematocrit 49.7, platelets 147, white count was normal at 7.38. Chem-7 was also essentially normal, sodium 140, potassium 3.8, chloride 102, bicarbonate 27, BUN 22, creatinine 0.9, glucose 104, his BNP was elevated at 2130. Chest x-ray was ordered at [place], which revealed right lower lobe opacification, was given Lasix in the ER and then was transferred to [place] for further care. PAST MEDICAL HISTORY: Includes TIA, CHF, COPD, late affect, CVA, CAD, hypertension, diabetes type 2, status post pacemaker placement, dementia, BPH and chronic AFib. HOSPITAL COURSE: The patient improved during his hospital stay, the patient was seen and evaluated by Dr. Bernard Greene for Cardiology. The patient underwent a 2D echo and was found to have hypertrophy of the left ventricle along with cardiomyopathy and left atrial enlargement His ejection fraction was noted to be 10-15%. The patient was treated aggressively with IV diuretics. The patient was also seen by Psychiatry, Dr. Davey due to his history of dementia, was found to have dementia with behavioral disturbances. His medications were adjusted. Seroquel was increased to 12.5 mg at bedtime and was given Seroquel 37.5. The patient was also seen and evaluated by Dr. Roma Greene for Pulmonology. The patient had a CT of his chest, which revealed bilateral pleural effusion greater on the right than on the left. He was found to have some cardiomegaly and parenchymal density of the right lower lobe. The patient also was noted to have some ____ noted on the CAT scan. The patient also had x-rays of his lumbar spine as well as his right and left hip, also he had x-rays of his left and right forearm, which essentially had been noted. The right and left forearms were noted to show no fractures. The right and left hip, left hip showed arthritis, but no fractures, right hip also showed no fractures, but degenerative changes were noted on x-ray. Lumbar spine x-ray was ordered and it did not show any acute fractures, but did show, however, diffuse degenerative changes. The patient had stool for C. diff, which was positive and an ID consult was ordered, Dr. Jose Greene had seen the patient and started him on some antibiotics treatment, Flagyl IV. The patient was subsequently transferred in stable condition, was to [facility] medications at the [facility]. [facility]# [id number]
== END 2016-11-18 20:53 | disposition short-term general hospital (02) | DRG 371 ==
LOC: TELE 23:07 → MSI 11-10 20:35
PROVIDERS: ADMIT Family Medicine; ATTEND Family Medicine
DX: A04.7 Enterocolitis due to Clostridium difficile (principal); J18.9 Pneumonia, unspecified organism; J96.00 Acute respiratory failure, unspecified whether with hypoxia or hypercapnia; I50.21 Acute systolic (congestive) heart failure; I11.0 Hypertensive heart disease with heart failure; I48.2 Chronic atrial fibrillation; I42.9 Cardiomyopathy, unspecified; G30.9 Alzheimer's disease, unspecified; F02.81 Dementia in other diseases classified elsewhere, unspecified severity, with behavioral disturbance; F31.2 Bipolar disorder, current episode manic severe with psychotic features; J44.9 Chronic obstructive pulmonary disease, unspecified; I69.30 Unspecified sequelae of cerebral infarction; I25.10 Atherosclerotic heart disease of native coronary artery without angina pectoris; E11.9 Type 2 diabetes mellitus without complications; N40.0 Benign prostatic hyperplasia without lower urinary tract symptoms; I25.119 Atherosclerotic heart disease of native coronary artery with unspecified angina pectoris; F29 Unspecified psychosis not due to a substance or known physiological condition; Z95.0 Presence of cardiac pacemaker
CPT/HCPCS: 36415-UA; 36600-90; 71010-TC; 71250-TC; 72100-TC; 73090-TC-LT; 73090-TC-RT; 80048-TC; 80053-TC; 80076-TC; 82140-TC; 82803-TC; 83735-TC; 83880-TC; 84132-TC; 84443-TC; 84484-TC; 85007-TC; 85025-TC; 85027-TC; 85610-TC; 87230-TC; 90779; 90799; 93005; 94640; 94760; J0696; J1940; J1956; J2001; J2930; J3480; J7512; J7613; X3401; Z7610